=== PATIENT | male | born 1995 | race Caucasian/White ===

== ENCOUNTER 2016-09-09 21:06 | Emergency (ER) | payer MEDICAID ==
[~2016-09-09] VITALS: Ht 172.7 cm; Wt 59.0 kg
[2016-09-09 22:28] VITALS: BP 138/78
[2016-09-09] MEDS ORDERED: ALBUTEROL SULFATE HFA 90 MCG/PUFF 8 GM INHALER IH ONE (22:30)
== END 2016-09-09 22:48 | disposition home or self-care (01) ==
LOC: EMS 21:07
DX: F41.9 Anxiety disorder, unspecified (principal); J45.909 Unspecified asthma, uncomplicated
CPT/HCPCS: 93005; 94640; 99284; J3535